=== PATIENT | female | born 1975 | race Asian ===

== ENCOUNTER 2016-06-12 15:56 | Outpatient (CLI) | payer OTHER | END 2016-06-12 15:57 | disposition home or self-care (01) | DX: M17.11 Unilateral primary osteoarthritis, right knee (principal) ==

== ENCOUNTER 2017-10-25 22:28 | Emergency (ER) | payer OTHER ==
[2017-10-25 22:52] LABS: BASOPHILS # (AUTO) 0.1 10^3/uL (0.0-0.1); BASOPHILS % (AUTO) 0.8 %; EOSINOPHILS # (AUTO) 0.1 10^3/uL (0.0-0.7); EOSINOPHILS % (AUTO) 0.9 %; HGB - HEMOGLOBIN 13.6 g/dL (12.0-16.0); LYMPHOCYTES # (AUTO) 1.8 10^3/uL (1.5-3.5); LYMPHOCYTES % (AUTO) 21.3 %; MEAN CORPUSCULAR HEMOGLOBIN 30.7 pg (27.0-31.0); MEAN CORPUSCULAR HGB CONC 35.1 g/dL (32.0-36.0); MEAN CORPUSCULAR VOLUME 87.5 fL (81.0-99.0); MEAN PLATELET VOLUME 7.3 fL (7.9-10.8); MONOCYTES # (AUTO) 0.7 10^3/uL (0.0-1.0); PLT - PLATELET COUNT 322 10^3/uL (130-450); RED BLOOD COUNT 4.42 10^6/uL (4.20-5.40); RED CELL DISTRIBUTION WIDTH 13.1 % (12.0-15.0); WHITE BLOOD COUNT 8.7 x10^3/uL (4.8-10.8)
[2017-10-25 23:05] LABS: ALBUMIN 4.1 g/dL (3.2-5.5); ALBUMIN/GLOBULIN RATIO 1.2 (1.0-2.2); BILIRUBIN,TOTAL 0.7 mg/dL (0.2-1.0); CALCIUM 9.2 mg/dL (8.5-10.3); TOTAL PROTEIN 7.5 g/dL (6.7-8.2)
--- NOTE | 2017-10-25 23:29 | ED Physician Documentation ---
PD HPI CHEST PAIN - Stated complaint Stated Complaint: CHEST PX - Chief complaint Chief Complaint: Cardiac - History obtained from History obtained from: Patient - History of Present Illness Timing - onset: Enter time (20:30), Today Timing - onset during: Rest (watching TV) Timing - details: Abrupt onset Pain level now: 0 Quality: Other (rapid and pounding palpitations, but denies pain) Location: Substernal Radiation: Other (LUE heaviness) Associated symptoms: Palpitations. No: Shortness of air, Diaphoresis, Nausea, Vomiting, Feeling faint / dizzy, General Weakness, Cough Similar symptoms before: Has not had sx before Recently seen: Not recently seen Review of Systems Cardiac: reports: Palpitations. denies: Chest pain / pressure, Pedal edema, Calf pain Respiratory: reports: Reviewed and negative GI: reports: Reviewed and negative PD PAST MEDICAL HISTORY - Past Medical History Past Medical History: No - Past Surgical History Past Surgical History: Yes General: Cholecystectomy - Present Medications Home Medications: Ambulatory Orders Medication Instructions Recorded Confirmed LORazepam [Lorazepam] 0.5 - 1 mg PO DAILY PRN #10 tablet 10/26/17 - Allergies Allergies/Adverse Reactions: Allergies Allergy/AdvReac Type Severity Reaction Status Date / Time acetaminophen [From Percocet] Allergy Intermediate Anaphylaxis Verified 22:37 oxycodone [From Percocet] Allergy Intermediate Anaphylaxis Verified 10/25/17 22: 37 Penicillins Allergy Intermediate Anaphylaxis Verified 10/25/17 22:37 - Social History Does the pt smoke?: No Smoking Status: Never smoker Does the pt drink ETOH?: No Does the pt have substance abuse?: No - Immunizations Immunizations are current?: Yes PD ED PE NORMAL - Vitals Vital signs reviewed: Yes - General General: Alert and oriented X 3, No acute distress, Well developed/nourished - Cardiac Cardiac: RRR, No murmur, No gallop, No rub - Respiratory Respiratory: No respiratory distress, Clear bilaterally - Abdomen Abdomen: Soft, Non distended - Derm Derm: Normal color, Warm and dry - Extremities Extremities: No edema Results - Vitals Vitals: Vital Signs - 24 hr 10/25/17 10/26/17 10/26/17 22:37 00:00 01:41 Temperature 36.3 C L Heart Rate 79 77 78 Respiratory 16 14 18 Rate Blood Pressure 135/78 H 124/68 133/73 H O2 Saturation 97 95 96 Oxygen O2 Source Room air - EKG (time done) No standard instances Rate: Rate (enter#) (82) Rhythm: NSR [place]: Normal Intervals: Normal [place] QRS: Normal Ischemia: Normal ST segments - Labs Labs: Laboratory Tests 10/25/17 10/25/17 10/25/17 22:49 22:49 22:49 WBC 8.7 RBC 4.42 Hgb 13.6 Hct 38.7 MCV 87.5 MCH 30.7 MCHC 35.1 RDW 13.1 Plt Count 322 MPV 7.3 L Neut # (Auto) 6.0 Lymph # (Auto) 1.8 [place] # (Auto) 0.7 Eos # (Auto) 0.1 Baso # (Auto) 0.1 Absolute Nucleated RBC 0.00 Nucleated RBC % 0.0 Sodium 137 Potassium 4.1 Chloride 101 Carbon Dioxide 29 Anion Gap 7.0 BUN 17 Creatinine 1.0 Estimated GFR (MDRD) 61 L Glucose 126 H Calcium 9.2 Total Bilirubin 0.7 AST 26 ALT 31 Alkaline Phosphatase 45 Troponin I < 0.04 Total Protein 7.5 Albumin 4.1 Globulin 3.4 Albumin/Globulin Ratio 1.2 Lipase 31 - Rads (name of study) chest xray Radiology: Prelim report reviewed, See rad report PD MEDICAL DECISION MAKING - ED course Complexity details: reviewed results, re-evaluated patient, considered differential, d/w patient - Sepsis Event Vital Signs: Vital Signs - 24 hr 10/25/17 10/26/17 10/26/17 22:37 00:00 01:41 Temperature 36.3 C L Heart Rate 79 77 78 Respiratory 16 14 18 Rate Blood Pressure 135/78 H 124/68 133/73 H O2 Saturation 97 95 96 Oxygen O2 Source Room air Departure - Departure Disposition: 01 Home, Self Care Clinical Impression: Palpitations Condition: Good Instructions: ED Chest Pain Atypical Unkn Cause, ED Palpitations Follow-Up: Kylee Vela PA [Primary Care Provider] - (Call in the morning to arrange for next available appointment) Prescriptions: LORazepam [Lorazepam] 0.5 - 1 mg PO DAILY PRN #10 tablet PRN Reason: Anxiety Discharge Date/Time: 10/26/17 01:41
--- NOTE | 2017-10-26 01:11 | XRAY Report ---
Procedure Date: 10/26/2017 Accession Number: [id number] / [id number] Procedure: XR - Chest 2 View X-Ray CPT Code: 47385 FULL RESULT: EXAM: CHEST RADIOGRAPHY EXAM DATE: 10/26/2017 12:43 AM. CLINICAL HISTORY: Chest pain. COMPARISON: None. TECHNIQUE: 2 views. FINDINGS: Lungs/Pleura: No focal opacities evident. No pleural effusion. No pneumothorax. Normal volumes. Mediastinum: Heart and mediastinal contours are unremarkable. Other: None. IMPRESSION: Normal 2-view chest radiography. RADIA
[2017-10-26 01:43] VITALS: BP 133/73
== END 2017-10-26 01:41 | disposition home or self-care (01) ==
LOC: ED 22:28
DX: R00.2 Palpitations (principal)
CPT/HCPCS: 36415; 71046; 80053; 83690; 84484; 85025; 93005; 99283

== ENCOUNTER 2018-11-13 08:36 | Outpatient (CLI) | payer OTHER ==
[2018-11-13 15:09] LABS: BILIRUBIN,URINE NEGATIVE (NEGATIVE); GLUCOSE, URINE (UA) NEGATIVE (NEGATIVE); KETONES,URINE (UA) NEGATIVE (NEGATIVE); LEUKOCYTE ESTERASE, URINE NEGATIVE (NEGATIVE); NITRITE,URINE NEGATIVE (NEGATIVE); OCCULT BLOOD,URINE TRACE-INTA (NEGATIVE); PROTEIN,URINE NEGATIVE (NEGATIVE); UROBILINOGEN,URINE 0.2 (NORMAL) E.U./dL (NORMAL)
[2018-11-13 15:20] LABS: BACTERIA,URINE None Seen /HPF (None Seen); CLARITY,URINE CLEAR (CLEAR); RBC,URINE 0-5 /HPF (0-5); SQUAMOUS EPITHELIAL CELL,UR FEW Squamous (<= Few)
== END 2018-11-13 23:59 | disposition home or self-care (01) ==
LOC: LAB.R 08:36
PROVIDERS: ATTEND Nurse Practitioner Obstetrics & Gynecology
DX: R35.0 Frequency of micturition (principal)
CPT/HCPCS: 81001; 87086

== ENCOUNTER 2020-06-06 15:33 | Emergency (ER) | payer OTHER ==
--- NOTE | 2020-06-06 17:00 | ED Physician Documentation ---
History of Present Illness - Stated complaint Stated Complaint: LOWER LEG PX - Chief complaint Chief Complaint: Ext Problem - History obtained from History obtained from: Patient - History of Present Illness Timing: How many weeks ago (1) - Additonal information Additional information: 44-year-old female has traveled down to [facility] and after arrival there she developed some pain to the back of her calves bilaterally the feels like it will just about spasm but does not. She does not feel she has swelling but she does have tenderness up into the popliteal fossa bilaterally. She is concerned about DVT. She has not had DVT previously. Review of Systems Constitutional: denies: Fever Eyes: denies: Decreased vision Ears: denies: Ear pain Nose: denies: Congestion Throat: denies: Sore throat Respiratory: denies: Cough GI: denies: Vomiting : denies: Dysuria, Frequency Skin: denies: Rash, Abrasion (s) Musculoskeletal: reports: Extremity pain. denies: Neck pain, Back pain, Extremity swelling Neurologic: denies: Generalized weakness, Focal weakness, Numbness PD PAST MEDICAL HISTORY - Past Surgical History Past Surgical History: Yes General: Cholecystectomy - Present Medications Home Medications: Ambulatory Orders Medication Instructions Recorded Confirmed No Known Home Medications 06/06/20 06/06/20 - Allergies Allergies/Adverse Reactions: Allergies Allergy/AdvReac Type Severity Reaction Status Date / Time acetaminophen [From Percocet] Allergy Intermediate Anaphylaxis Verified 06/06/20 16:35 oxycodone [From Percocet] Allergy Intermediate Anaphylaxis Verified 06/06/20 16:35 Penicillins Allergy Intermediate Anaphylaxis Verified 06/06/20 16:35 - Social History Does the pt smoke?: No Smoking Status: Never smoker Does the pt drink ETOH?: No Does the pt have substance abuse?: No - Immunizations Immunizations are current?: Yes PD ED PE NORMAL - Vitals Vital signs reviewed: Yes (hypertensive mild) - General General: Alert and oriented X 3, No acute distress, Well developed/nourished - HEENT HEENT: Atraumatic, PERRL - Neck Neck: Supple, no meningeal sign, No bony TTP - Respiratory Respiratory: No respiratory distress - Derm Derm: Normal color, Warm and dry, No rash - Extremities Extremities: No deformity, No edema, Other (There is calf tenderness bilaterally without palpable cord. There is tenderness into the popletial fossa bilat. ) - Neuro Neuro: Alert and oriented X 3, admitting supervisor 2-12 intact, No motor deficit, No sensory deficit, Normal speech Eye Opening: Spontaneous Motor: Obeys Commands Verbal: Oriented GCS Score: 15 - Psych Psych: Normal mood, Normal affect Results - Vitals Vitals: Vital Signs - 24 hr 06/06/20 16:28 Temperature 36.8 C Heart Rate 75 Respiratory 20 Rate Blood Pressure 136/84 H O2 Saturation 99 Oxygen O2 Source Room air Procedures - IVC sono (time) 1700 Bedside IVC sono: IVC measures (cm), IVC collapsed c insp (cm) (complete), Euvolemia (nearly) PD MEDICAL DECISION MAKING - ED course Complexity details: considered differential, d/w patient ED course: 44 y/o female with concerns for DVT after travel has a benign exam and concerning symptoms. She is not dehydrated as a cause for calf cramping. At shift change care is turned over to Dr. Lopez with venous duplex pending.
--- NOTE | 2020-06-06 18:56 | Ultrasound Report ---
PROCEDURE: Duplex Ext Veins Bilateral INDICATIONS: PRAVEEN ORNELAS TECHNIQUE: Real-time imaging, as well as color and pulse Doppler interrogation, were performed of the deep veins of both legs from the inguinal ligament to the popliteal fossa. COMPARISON: None FINDINGS: The deep veins are normally compressible, and free of intraluminal thrombus. Color and pu lse Doppler demonstrate normal phasic intravascular flow. There is normal augmentation response to d istal compression maneuver. Trace amount of fluid is seen in medial right popliteal fossa. 5.6 x 1.4 x 2.9 cm fluid collection is seen in medial left popliteal fossa. IMPRESSION: 1. No evidence of DVT in visualized bilateral lower extremity veins. 2. Fibroid 6 x 1.4 x 2.9 cm left popliteal cyst as above. Reviewed by: Willard Sutton MD on 06/06/2020 6:55 PM PDT Approved by: Willard Sutton MD on 06/06/2020 6:55 PM PDT Station ID: [id number]
--- NOTE | 2020-06-06 19:00 | ED Physician Documentation ---
History of Present Illness - Stated complaint Stated Complaint: LOWER LEG PX - Chief complaint Chief Complaint: Ext Problem PD PAST MEDICAL HISTORY - Past Medical History Past Medical History: No - Past Surgical History Past Surgical History: Yes General: Cholecystectomy - Present Medications Home Medications: Ambulatory Orders Medication Instructions Recorded Confirmed No Known Home Medications 06/06/20 06/06/20 - Allergies Allergies/Adverse Reactions: Allergies Allergy/AdvReac Type Severity Reaction Status Date / Time acetaminophen [From Percocet] Allergy Intermediate Anaphylaxis Verified 06/06/20 16:35 oxycodone [From Percocet] Allergy Intermediate Anaphylaxis Verified 06/06/20 16:35 Penicillins Allergy Intermediate Anaphylaxis Verified 06/06/20 16:35 - Social History Does the pt smoke?: No Smoking Status: Never smoker Does the pt drink ETOH?: No Does the pt have substance abuse?: No - Immunizations Immunizations are current?: Yes - POLST Patient has POLST: No Results - Vitals Vitals: Vital Signs - 24 hr 06/06/20 16:28 Temperature 36.8 C Heart Rate 75 Respiratory 20 Rate Blood Pressure 136/84 H O2 Saturation 99 Oxygen O2 Source Room air PD MEDICAL DECISION MAKING - ED course Complexity details: reviewed results, re-evaluated patient, d/w patient ED course: Duplex ultrasound is negative. No evidence of DVT. Patient was signed out by Dr. Murillo. See his note for full evaluation. Patient declines any pain medication for home. She will stay on Motrin as needed for pain. We will have her follow-up with her doctor for further care. Patient counseled regarding signs and symptoms for which I believe and urgent re-evaluation would be necessary. Patient with good understanding of and agreement to plan and is comfo rtable going home at this time This document was made in part using voice recognition software. While efforts are made to proofread this document, sound alike and grammatical errors may occur. Departure - Departure Disposition: Home, Self Care Clinical Impression: Leg pain Qualifiers: Laterality: bilateral Qualified Code(s): M79.604 - Pain in right leg; M79.605 - Pain in left leg Condition: Good Instructions: ED Muscle Pain Leg Cramps Follow-Up: DEVON HEREDIA DO [Primary Care Provider] - Within 1 week Comments: Thankfully there is no DVT on your ultrasound today. Follow-up with your doctor for further care. Return if you worsen. You can continue Motrin or Tylenol as needed for pain.
[2020-06-06 19:07] VITALS: BP 139/72
== END 2020-06-06 19:14 | disposition home or self-care (01) ==
LOC: ED 15:33
DX: M79.662 Pain in left lower leg (principal); M79.661 Pain in right lower leg
CPT/HCPCS: 93970; 99282; 99284

== ENCOUNTER 2020-10-05 18:17 | Emergency (ER) | payer OTHER ==
[2020-10-05 18:39] LABS: BASOPHILS # (AUTO) 0.1 10^3/uL (0.0-0.1); BASOPHILS % (AUTO) 0.3 %; EOSINOPHILS % (AUTO) 0.1 %; HCT - HEMATOCRIT 41.5 % (37.0-47.0); HGB - HEMOGLOBIN 13.9 g/dL (12.0-16.0); LYMPHOCYTES # (AUTO) 1.4 10^3/uL (1.5-3.5); LYMPHOCYTES % (AUTO) 7.3 %; MEAN CORPUSCULAR HEMOGLOBIN 29.9 pg (27.0-31.0); MEAN CORPUSCULAR HGB CONC 33.5 g/dL (32.0-36.0); MEAN CORPUSCULAR VOLUME 89.2 fL (81.0-99.0); MEAN PLATELET VOLUME 9.1 fL (7.9-10.8); MONOCYTES # (AUTO) 0.5 10^3/uL (0.0-1.0); MONOCYTES % (AUTO) 2.6 %; NEUTROPHILS # (AUTO) 16.7 10^3/uL (1.5-6.6); NEUTROPHILS % (AUTO) 89.4 %; PLT - PLATELET COUNT 298 10^3/uL (130-450); RED BLOOD COUNT 4.65 10^6/uL (4.20-5.40); RED CELL DISTRIBUTION WIDTH 12.3 % (12.0-15.0); WHITE BLOOD COUNT 18.7 x10^3/uL (4.8-10.8)
[2020-10-05 18:51] LABS: ALBUMIN 4.3 g/dL (3.2-5.5); ALBUMIN/GLOBULIN RATIO 1.4 (1.0-2.2); BILIRUBIN,TOTAL 0.7 mg/dL (0.2-1.0); CALCIUM 9.2 mg/dL (8.5-10.3); CREATININE 0.9 mg/dL (0.4-1.0); POTASSIUM 3.7 mmol/L (3.5-5.0); TOTAL PROTEIN 7.4 g/dL (6.7-8.2)
[2020-10-05 19:14] LABS: BILIRUBIN,URINE NEGATIVE (NEGATIVE); GLUCOSE, URINE (UA) NEGATIVE (NEGATIVE); KETONES,URINE (UA) NEGATIVE (NEGATIVE); LEUKOCYTE ESTERASE, URINE SMALL (NEGATIVE); NITRITE,URINE NEGATIVE (NEGATIVE); OCCULT BLOOD,URINE TRACE-LYSE (NEGATIVE); PH,URINE 5.5 PH (5.0-7.5); PROTEIN,URINE NEGATIVE (NEGATIVE); UROBILINOGEN,URINE 0.2 (NORMAL) E.U./dL (NORMAL)
[2020-10-05] MEDS: SODIUM CHLORIDE 0.9% 1,000 ML IV STA (19:14)
[2020-10-05] MEDS: ONDANSETRON 4 MG/2 ML VIAL IVP STA (19:15)
[2020-10-05 19:18] LABS: CLARITY,URINE HAZY (CLEAR); HCG UR QUAL NEGATIVE
--- NOTE | 2020-10-05 19:23 | ED Physician Documentation ---
History of Present Illness - Stated complaint Stated Complaint: ABD PX - Chief complaint Chief Complaint: Abd Pain - Additonal information Additional information: 44-year-old female presents emergency department for evaluation of acute onset periumbilical pain that radiated to the right lower quadrant. Symptoms began about 5 hours prior to arrival. Some nausea no vomiting. No urinary symptoms. Pain is now localized to the right lower quadrant and constant. Described as throbbing in nature. Past surgical history includes previous cholecystectomy. Patient denies alcohol or tobacco use. Takes no routinely prescribed medications. Denies possibility of . Review of Systems Constitutional: reports: Reviewed and negative Ears: reports: Reviewed and negative Nose: reports: Reviewed and negative Throat: reports: Reviewed and negative Cardiac: reports: Reviewed and negative Respiratory: reports: Reviewed and negative GI: reports: Abdominal Pain, Nausea. denies: Vomiting, Constipation, Diarrhea : denies: Dysuria, Frequency, Hesitancy Skin: denies: Rash, Lesions Musculoskeletal: reports: Reviewed and negative Neurologic: reports: Reviewed and negative PD PAST MEDICAL HISTORY - Past Surgical History Past Surgical History: Yes General: Cholecystectomy - Present Medications Home Medications: Ambulatory Orders Medication Instructions Recorded Confirmed HYDROcod/ACETAM 5/325 [[place] 5/325] 1 tablet PO BID PRN #10 tablet 10/05/20 - Allergies Allergies/Adverse Reactions: Allergies Allergy/AdvReac Type Severity Reaction Status Date / Time acetaminophen [From Percocet] Allergy Intermediate Anaphylaxis Verified 06/06/20 16:35 oxycodone [From Percocet] Allergy Intermediate Anaphylaxis Verified 06/06/20 16:35 Penicillins Allergy Intermediate Anaphylaxis Verified 06/06/20 16:35 cephalexin Allergy Hives Verified 10/05/20 18:47 - Social History Does the pt smoke?: No Smoking Status: Never smoker Does the pt drink ETOH?: No Does the pt have substance abuse?: No - Immunizations Immunizations are current?: Yes - POLST Patient has POLST: No PD ED PE EXPANDED - General General: Alert, No acute distress - Cardiac Cardiac: Regular Rate, Radial strong equal, Pedal strong equal, Cap refill < 2 sec. No: Murmur Present - Respiratory Respiratory: Clear to ausultation derrick. No: Distress, Labored - Abdomen Abdomen: Normal Bowel sounds, Tender to palpation, RUQ (RLQ percussion tenderness with rebound. no flank or CVA tenderness) - Back Back: Normal exam. No: Vertebral tenderness, CVA TTP right, CVA TTP left - Derm Derm: Normal color, Warm and dry - Extremities Extremities: Normal - Neuro Neuro: Alert and Oriented X 3, CNII-XII intact - GCS Eye Opening: Spontaneous Motor: Obeys Commands Verbal: Oriented Total: 15 Results - Vitals Vitals: Vital Signs - 24 hr 10/05/20 10/05/20 18:42 23:33 Temperature 36.8 C Heart Rate 76 78 Respiratory 18 16 Rate Blood Pressure 125/74 128/78 O2 Saturation 100 100 Oxygen O2 Source Room air - Labs Labs: Laboratory Tests 10/05/20 10/05/20 10/05/20 18:34 18:34 19:07 WBC 18.7 H RBC 4.65 Hgb 13.9 Hct 41.5 MCV 89.2 MCH 29.9 MCHC 33.5 RDW 12.3 Plt Count 298 MPV 9.1 Neut # (Auto) 16.7 H Lymph # (Auto) 1.4 L [place] # (Auto) 0.5 Eos # (Auto) 0.0 Baso # (Auto) 0.1 Absolute Nucleated RBC 0.00 Nucleated RBC % 0.0 Sodium 135 Potassium 3.7 Chloride 97 L Carbon Dioxide 27 Anion Gap 11.0 BUN 19 Creatinine 0.9 Estimated GFR (MDRD) 68 L Glucose 134 H Calcium 9.2 Total Bilirubin 0.7 AST 20 ALT 27 Alkaline Phosphatase 52 Total Protein 7.4 Albumin 4.3 Globulin 3.1 Albumin/Globulin Ratio 1.4 Lipase 23 Urine Color YELLOW Urine Clarity HAZY Urine pH 5.5 Ur Specific [place] >=1.030 H Urine Protein NEGATIVE Urine Glucose (UA) NEGATIVE Urine Ketones NEGATIVE Urine Occult Blood TRACE-LYSE Urine Nitrite NEGATIVE Urine Bilirubin NEGATIVE Urine Urobilinogen 0.2 (NORMAL) Ur Leukocyte Esterase SMALL H Urine RBC 0-5 Urine WBC 6-10 H Ur Squamous Epith Cells MOD Squamous H Urine Bacteria Moderate H Urine Mucus Few Strands Ur Microscopic Review INDICATED Urine Culture Comments NOT INDICATED Urine HCG, Qual NEGATIVE - Rads (name of study) CT abd Radiology: Final report received (Peripherally enhancing cystic mass in the right lower quadrant likely originating from the right ovary. Greatest dimension 10 cm. May represent mucinous cystadenoma or cystadenocarcinoma. Appendix appears normal.) Pelvic US Radiology: See rad report, Other (Per interventional technologist flow is seen to the ovarian mass.) PD MEDICAL DECISION MAKING - ED course Complexity details: reviewed results, d/w patient, d/w family ED course: 44-year-old female that presents emergency department for evaluation of acute right lower quadrant abdominal pain that began in the periumbilical region. Initial concern was for that of acute appendicitis. Screening labs did did show a moderte leukocytosis. however no fevers. No urinary symptoms. UA likely contaminated. suspect stress marginalization. a CT scan completed showed a very large cyst \ic mass originating from the right adnexa likely representing a mucinous cystadenoma or cystadenocarcinoma. Findings were discussed with on- call OB Dr. Gallegos. She would recommend a pelvic ultrasound to rule out a torsion and if negative prompt follow-up with OB. She indicated to me that she would contact the OB team tomorrow to help arrange follow-up. OB ultrasound completed and does nto show findings or torsion. Findings were discussed at length with pt and her mother. Fontinue f/u with OB and PCP. emergent return precautions discussed. Pt declined analgesia here in the ED but did accept an rx on dc I am prescribing a short course of short-acting opioid pain medication for this patient. I have reviewed the patients CYLINDER CHECKER and no concerning findings were noted. I have discussed that the opioids are for short term therapy only, and will not be refilled from the ED. Departure - Departure Disposition: 01 Home, Self Care Clinical Impression: Right ovarian cyst Leukocytosis, unspecified Qualifiers: Leukocytosis type: unspecified Qualified Code(s): D72.829 - Elevated white blood cell count, unspecified Condition: Stable Record reviewed to determine appropriate education?: Yes Follow-Up: DEVON HEREDIA DO [Primary Care Provider] - Within 3 Days [facility] [Provider Group] - Within 3 Days Blanca Bourgeois MD [Provider Admit Priv/Credential] - Prescriptions: HYDROcod/ACETAM 5/325 [[place] 5/325] 1 tablet PO BID PRN #10 tablet PRN Reason: Pain Comments: You were seen in the ER today for pain in the right lower side of your abdomen. Your screening labs do not show any worrisome findings. Unfortunately the CT did show a very large cystic mass originating near the right ovary. This could be what is called a mucous cystadenoma or a form of cancer called cystadenocarcinoma. We did do an ultrasound That confirmed flow to this mass. However given the size of it it is at risk for twisting. I discussed this case with Dr. Gallegos the on-call OB. You will need very prompt follow-up with an driver license technician. Further testing may include labs to check cancer markers as well as possible referral to a melangeur operator that specializes in cysts of the ovary or cancers of the reproductive system. I am prescribing a short course of narcotic pain medication for you. These are potentially dangerous and addictive medications that should be used carefully. These medications may constipate you. Take an flmp-cdw-rpsejko stool softener (docusate) twice daily with plenty of water while taking these medications. If you go 24 hours without a bowel movement, take srbb-[id number]-guwtftz miralax, per package instructions. Do not drink or drive while taking these medications. If you received narcotic or sedating medications while in the emergency department, do not drive for 24 hours. Store this medication in a safe, secure place and out of reach of children. It is a violation of federal law to give or sell this medication to another person or to use in a manner other than prescribed. The ED will not refill narcotic prescriptions, including prescriptions lost or stolen. To dispose of unwanted medications: 1. [facility] at [address] in [place] has a medication drop box. They accept prescription medications (in pill form) Sunday through Sunday 9:00 a.m. to 5:00 p.m. 2. The [facility] accepts prescription medications (in pill form only) for disposal year round. Call for more information. 3. Contact the [facility] for the next [facility] sponsored prescription drug collection event. , [phone], or [phone]; Note that many narcotic pain relievers also contain Tylenol/acetaminophen. Please ensure that your total dose of acetaminophen from all sources does not exceed 3 g (3000 mg) per day. Discharge Date/Time: 10/05/20 23:33
[2020-10-05 19:25] LABS: BACTERIA,URINE Moderate /HPF (None Seen); RBC,URINE 0-5 /HPF (0-5); SQUAMOUS EPITHELIAL CELL,UR MOD Squamous (<= Few)
[2020-10-05 19:26] LABS: MUCUS,URINE Few Strands
[2020-10-05] MEDS ORDERED: IOVERSOL 320 100 ML VIAL IVP ONE (19:40)
--- NOTE | 2020-10-05 20:48 | CT Report ---
PROCEDURE: Abdomen/Pelvis W INDICATIONS: periumbilical to RLQ CONTRAST: IV CONTRAST: Optiray 320 ml: 100 PO CONTRAST: *NO PO CONTRAST TECHNIQUE: After the administration of intravenous contrast, 5 mm thick sections acquired from the diaphragms to the symphysis. 5 mm thick coronal and sagittal reformats were acquired. For radiation dose reducti on, the following was used: automated exposure control, adjustment of mA and/or kV according to miguelito ent size. COMPARISON: None. FINDINGS: Image quality: Excellent. ABDOMEN: Lung bases: Lung bases are clear. Heart size is normal. Solid organs: Evaluation of the liver demonstrates no focal hepatic lesions. Gallbladder is surgical ly absent. Biliary system is non dilated. The spleen is normal in size. Pancreas enhances normally w ithout peripancreatic fat stranding or fluid collections. No adrenal nodules. Kidneys demonstrate n o hydronephrosis. Peritoneum and bowel: Bowel loops demonstrate normal wall thickness and caliber. The appendix is nor mal in appearance. There is a small amount of free fluid within the pelvis and paracolic gutters. No intracranial free air. Nodes and vessels: No retroperitoneal or mesenteric adenopathy by size criteria. Aorta and inferior vena cava are normal in size. Miscellaneous: No ventral hernias. PELVIS: Genitourinary: Bladder wall thickness is normal. There is a large peripherally enhancing cyst within the right lower quadrant measuring approximately 10.0 x 9.9 x 8.2 cm. There is mild eccentric wall thickening inferiorly. Findings appear to originate from the right adnexa and likely represents a cystic ovarian mass. No left adnexal mass. Left ovary appears within normal size limits. The uterus also appears within normal size limits. Miscellaneous: No inguinal hernias or adenopathy. Bones: No suspicious bony lesions. No vertebral body compression fractures. IMPRESSION: 1. Peripherally enhancing cystic mass in the right lower quadrant likely originating from the right o vary. The findings likely represent a serous or mucinous cystadenoma or cystadenocarcinoma. 2. Small amount of ascites demonstrated in the abdomen. 3. Appendix appears within normal limits. Reviewed by: Boubacar Helms MD on 10/05/2020 8:47 PM PDT Approved by: Boubacar Helms MD on 10/05/2020 8:47 PM PDT Station ID: [id number]
[2020-10-05] MEDS: IOVERSOL 320 100 ML VIAL IVP ONE (23:31)
[2020-10-05 23:35] VITALS: BP 128/78
--- NOTE | 2020-10-06 08:42 | Ultrasound Report ---
PROCEDURE: Pelvic w/Transvag+Doppler Comp INDICATIONS: pelvic pain, R TECHNIQUE: Real-time scanning was performed of the pelvic organs, with image documentation. Additional endovagi nal scanning was necessary due to incomplete visualization of the adnexal and endometrial structures by transabdominal scanning. COMPARISON: CT abdomen/pelvis 10/05/2020 reviewed.. FINDINGS: No pathologic free abdominal or pelvic fluid. Uterus: Uterus is anteverted and normal in size at 5.4 x 6.8 x 9.3 cm. The endometrium measures 6.4 mm in combined thickness. There is a small uterine fibroid at the anterior myometrium. Ovaries: The right ovary is likely displaced by the large cystic mass at the right adnexa identified by CT scanning earlier today. It was not identified as a discrete entity but the large cyst is seen measuring up to 10.4 x 9.1 x 10.5 cm. This structure was seen to contain fluid that was higher than w ater in density, approximately 20 Hounsfield units on the prior CT scanning. The left ovary measures 2.7 x 1.6 x 3.8 cm with an overall ovarian volume of 8.6 cc, with normal-appe aring flow and no evidence of ovarian torsion. There is a small amount of free fluid deep within the pelvis. IMPRESSION: Gynecological consultation is recommended given the large cystic mass at the right adnexa which measu res higher than water in radiodensity on CT scanning same day. A cystic neoplasm may explain this akilah earance. Left ovary visualized and normal in appearance. The right ovary could not be located. Reviewed by: Mg Sosa MD on 10/06/2020 8:41 AM PDT Approved by: Mg Sosa MD on 10/06/2020 8:41 AM PDT Station ID: [id number]
== END 2020-10-05 23:33 | disposition home or self-care (01) ==
LOC: ED 18:17
DX: N83.201 Unspecified ovarian cyst, right side (principal); D72.829 Elevated white blood cell count, unspecified
CPT/HCPCS: 36415; 74177; 76830; 76856; 80053; 81001; 81025; 83690; 85025; 93975; 99284; Q9967; 81003; 87086

== ENCOUNTER 2020-12-02 16:22 | Outpatient (CLI) | payer OTHER ==
--- NOTE | 2020-12-02 16:50 | XRAY Report ---
PROCEDURE: Knee 3 View LT INDICATIONS: KNEE FULLNESS AND PROBABLE MENARD CYST TECHNIQUE: 3 views of the left knee were acquired. COMPARISON: None. FINDINGS: Bones: No acute fractures or dislocations. No suspicious bony lesions. Soft tissues: No joint effusion. No suspicious soft tissue calcifications. IMPRESSION: No acute osseous abnormality. If symptoms persist or there is continued clinical concern , further evaluation with MRI or CT may be helpful. Reviewed by: Greg Palomo MD on 12/02/2020 4:48 PM PDT Approved by: Greg Palomo MD on 12/02/2020 4:48 PM PDT Station ID: [id number]
== END 2020-12-02 16:23 | disposition home or self-care (01) ==
LOC: DI.S 16:22
PROVIDERS: ATTEND Family Medicine
DX: M25.562 Pain in left knee (principal); G89.29 Other chronic pain